=== PATIENT | male | born 1980 | race Caucasian/White ===

== ENCOUNTER 2017-06-13 10:55 | Emergency (ER) | payer SELFPAY ==
[~2017-06-13] VITALS: Ht 175.3 cm; Wt 74.8 kg
[2017-06-13 11:01] VITALS: BP 134/69
--- NOTE | 2017-06-13 11:22 | PHYS DOC ---
Past Medical History Past Medical History: Anxiety, Sciatica, Other Additional Past Medical Histor: scoliosis,back pain Past Surgical History: Other Additional Past Surgical Histo: left hand, left toe Alcohol Use: None Drug Use: None Adult General Chief Complaint Chief Complaint: LOWER BACK PAIN OR INJURY HPI HPI Patient is a 36 year old male with history of sciatica and anxiety moderate bilateral low back pain that began 5 days ago after lifting a refrigerator. Patient denies any trauma. He states the pain is radiating into the right hip. Patient states he was seen by the PCP who prescribed naproxen and Flexeril. He states it's not helping. Patient denies any loss of bowel/bladder function. Review of Systems Review of Systems Constitutional: Denies fever or chills [] GI: Denies abdominal pain, nausea, vomiting, bloody stools or diarrhea [] : Denies dysuria or hematuria [] Musculoskeletal: Low back pain radiating into the right hip Integument: Denies rash or skin lesions [] Neurologic: Denies headache, focal weakness or sensory changes [] Endocrine: Denies polyuria or polydipsia [] Current Medications Current Medications Current Medications Medications (Trade) Dose Ordered Sig/Carlos Start Time Stop Time Status Last Admin Dose Admin Dexamethasone Sodium Phosphate (Decadron) 10 mg 1X ONCE 06/13/17 11:30 06/13/17 11:31 Ketorolac Tromethamine (Toradol Im) 60 mg 1X ONCE 06/13/17 11:30 06/13/17 11:31 Allergies Allergies Allergies Coded Allergies Type Severity Reaction Last Updated Verified No Known Drug Allergies 01/15/14 No Physical Exam Physical Exam Constitutional: Well developed, well nourished, no acute distress, non-toxic appearance. [] HENT: Normocephalic, atraumatic, bilateral external ears normal, oropharynx moist, no oral exudates, nose normal. [] Abdomen: Bowel sounds normal, soft, no tenderness, no masses, no pulsatile masses. [] Skin: Warm, dry, no erythema, no rash. [] Back:Diffuse paraspinal muscle tenderness bilaterally worse on the right SI joint. No midline lumbar spine tenderness, no CVA tenderness. [] Extremities: No tenderness, no cyanosis, no clubbing, ROM intact, no edema. [] Neurologic: Alert and oriented X 3, normal motor function, normal sensory function, no focal deficits noted. [] Psychologic: Affect normal, judgement normal, mood normal. [] Current Patient Data Vital Signs Vital Signs Date Time Temp Pulse Resp B/P (MAP) Pulse Ox O2 Delivery O2 Flow Rate FiO2 06/13/17 11:01 97.9 106 22 95 Room Air 97.9 EKG EKG [] Radiology/Procedures Radiology/Procedures [] Course & Med Decision Making Course & Med Decision Making Pertinent Labs and Imaging studies reviewed. (See chart for details) Patient is in the ED with bilateral low back pain radiating into the right hip that began 5 days ago after lifting a refrigerator. It sounds like a muscle strain. He was seen by the PCP and was given naproxen and Flexeril which is not helping. He was given Toradol and Decadron in the ED. I discharged him with Medrol Dosepak Ultram and Robaxin. Recommended he follows up with the PCP in the next 3 days if symptoms are not improving. He requested a note for work which was provided. Dragon Disclaimer Dragon Disclaimer This electronic medical record was generated, in whole or in part, using a voice recognition dictation system. Departure Departure Impression: Primary Impression: Lumbosacral strain Disposition: HOME, SELF-CARE Condition: STABLE Referrals: NON,STAFF (PCP) Follow-up with your doctor as soon as you can Patient Instructions: Lumbosacral Strain Additional Instructions: You were seen for lumbar sacral muscle strain. Do not do any strenuous activities including lifting anything a gallon of milk for the next 7 days. Use the provided medications as ordered. Follow-up with your doctor as soon as you can. Come back to the ED symptoms worsen. Scripts Methylprednisolone (MEDROL) 4 Mg Tab.ds.pk 1 PKG PO UD, #1 PKG Prov: [employer] 06/13/17 Methocarbamol (ROBAXIN) 500 Mg Tablet 1 TAB PO TID, #30 TAB Prov: MUTUNGA,ISABELLE [employer] 06/13/17 Tramadol Hcl (ULTRAM) 50 Mg Tablet 1 TAB PO Q6HRS, #30 TAB Prov: M[employer] 06/13/17 Problem Qualifiers Primary Impression: Lumbosacral strain Encounter type: initial encounter Qualified Codes: S39.012A - Strain of muscle, fascia and tendon of lower back, initial encounter MUTSATHYAISABELLE [employer] Jun 13, 2017 11:22
[2017-06-13] MEDS ORDERED: KETOROLAC TROMETHAMINE 60 MG/2 ML INJ. IM ONE (11:30)
[2017-06-13] MEDS ORDERED: DEXAMETHASONE SOD PHOS 20 MG/5 ML VIAL. IM ONE (11:30)
[2017-06-13] MEDS ORDERED: TRAM-48 PO (11:31)
[2017-06-13] MEDS ORDERED: METH-37 PO (11:31)
[2017-06-13] MEDS ORDERED: METH4TAB2 PO (11:31)
== END 2017-06-13 11:35 | disposition home or self-care (01) ==
LOC: ER 10:55
DX: S39.012A Strain of muscle, fascia and tendon of lower back, initial encounter (principal); M41.9 Scoliosis, unspecified; F41.9 Anxiety disorder, unspecified; X58.XXXA Exposure to other specified factors, initial encounter; Y93.89 Activity, other specified; Y92.89 Other specified places as the place of occurrence of the external cause; Y99.8 Other external cause status
CPT/HCPCS: 96372; 99284; J1100; J1885

== ENCOUNTER 2017-06-27 21:43 | Emergency (ER) | payer SELFPAY ==
[~2017-06-27] VITALS: Ht 175.3 cm; Wt 74.8 kg
[~2017-06-27 21:43] MED LIST: METH-37 PO; METH4TAB2 PO; TRAM-48 PO
--- NOTE | 2017-06-27 22:01 | PHYS DOC ---
Past Medical History Past Medical History: Anxiety, Sciatica, Other Additional Past Medical Histor: scoliosis,back pain Past Surgical History: Other Additional Past Surgical Histo: left hand, left toe Smoking: Greater than 1 pack/day Alcohol Use: None Drug Use: None Social History Adult General Chief Complaint Chief Complaint: LOWER BACK PAIN OR INJURY HPI HPI Patient is a 36 year old male presents to the emergency department with complaints of low back pain that radiates to the right leg. Patient states that he has a long-standing history of low back pain with his most recent visit to the emergency department being August 13, 2017. At that visit he was lifting and developed low back pain, was x-rayed and treated with Medrol Dosepak, tramadol and a muscle relaxant. This evening patient went bowling and threw one ball and had onset of his chronic low back pain. He's had no loss of function of lower extremity's. No loss of bowel or bladder control. He is here seeking pain relief. Review of Systems Review of Systems Constitutional: Denies fever or chills [] Eyes: Denies change in visual acuity, redness, or eye pain [] HENT: Denies nasal congestion or sore throat [] Respiratory: Denies cough or shortness of breath [] Cardiovascular: No additional information not addressed in HPI [] GI: Denies abdominal pain, nausea, vomiting, bloody stools or diarrhea [] : Denies dysuria or hematuria [] Musculoskeletal: Low back pain Integument: Denies rash or skin lesions [] Neurologic: Denies headache, focal weakness or sensory changes [] Endocrine: Denies polyuria or polydipsia [] Current Medications Current Medications Current Medications Medications (Trade) Dose Ordered Sig/[facility] Start Time Stop Time Status Last Admin Dose Admin Diazepam (Valium) 5 mg 1X ONCE 06/27/17 23:30 06/27/17 23:31 DC 06/27/17 23:23 5 MG Fentanyl Citrate (Fentanyl 2ml Vial) 50 mcg 1X ONCE 06/27/17 23:15 06/27/17 23:16 DC 06/27/17 23:10 50 MCG Hydromorphone HCl (Dilaudid) 1 mg 1X ONCE 06/28/17 00:00 06/28/17 00:01 DC 06/28/17 00:04 1 MG Ketorolac Tromethamine (Toradol Im) 60 mg 1X ONCE 06/27/17 22:15 06/27/17 22:16 DC 06/27/17 22:21 60 MG Ondansetron HCl (Zofran) 4 mg 1X ONCE 06/27/17 23:15 06/27/17 23:16 DC 06/27/17 23:09 4 MG Orphenadrine Citrate (Norflex) 60 mg 1X ONCE 06/27/17 22:15 06/27/17 22:16 DC 06/27/17 22:22 60 MG Sodium Chloride 1,000 ml @ 1,000 mls/hr 1X ONCE 06/27/17 23:30 06/28/17 00:29 06/27/17 23:07 1,000 MLS/HR Allergies Allergies Allergies Coded Allergies Type Severity Reaction Last Updated Verified No Known Drug Allergies 01/15/14 No Physical Exam Physical Exam Constitutional: Well developed, well nourished, no acute distress, non-toxic appearance. [] Neck: Normal range of motion, no midline or paracervical tenderness, supple, no stridor. [] Cardiovascular:Heart rate regular rhythm, no murmur [] Lungs & Thorax: Bilateral breath sounds clear to auscultation [] Abdomen: Bowel sounds normal, soft, no tenderness, no masses, no pulsatile masses. [] Skin: Warm, dry, no erythema, no rash. [] Back: Mild tenderness over the right sacroiliac crest into the right leg. Negative straight raise leg test. His muscle strength is 5 over 5, DTRs 2 over 4. No CVAT tenderness. Neurovascular intact distally. Extremities: No tenderness, no cyanosis, no clubbing, ROM intact, no edema. Neurologic: Alert and oriented X 3, normal motor function, normal sensory function, no focal deficits noted. [] Current Patient Data Vital Signs Vital Signs Date Time Temp Pulse Resp B/P (MAP) Pulse Ox O2 Delivery O2 Flow Rate FiO2 06/28/17 00:04 18 97 Room Air 06/27/17 23:25 87 124/62 (82) 06/27/17 21:55 98.0 98.0 EKG EKG [] Radiology/Procedures Radiology/Procedures Three-view lumbar spine reviewed, no acute bony changes. [] Course & Med Decision Making Course & Med Decision Making Pertinent Labs and Imaging studies reviewed. (See chart for details) 2245: Patient received Toradol 60 mg IM, Norflex 60 mg IM and 50 g of fentanyl IM. Patient had persistent lumbar pain, requesting x-ray, patient had the same films done on his visit July 10, 2017. An IV will be placed and he will be given additional 50 g fentanyl IV,Valium 5mg IV, 1LNS; lumbar spine films ordered. 2345: Lumbar spine films reviewed, no bony changes. Patient states that his discomfort is better but still rates it a level VII on a scale 1-10. Dilaudid 1 mg IV given 1215: Pain rated 4 on a scale 1-10 after dilaudid 1mg IM. Plan for discharge, pt to F/U with PCP for further evaluation and treatment of chronic LBP with sciatica Miguel Disclaimer Miguel Disclaimer This electronic medical record was generated, in whole or in part, using a voice recognition dictation system. Departure Departure Impression: Primary Impression: Sciatica Additional Impression: Acute exacerbation of chronic low back pain Disposition: HOME, SELF-CARE Condition: STABLE Referrals: SHANELL DEL ROSARIO APRN (PCP) Patient Instructions: Sciatica Additional Instructions: No bowling, no lifting over 7 pounds, no bending at the waist, no pushing or pulling objects over 7 pounds. Please take prescriptions as directed. Ice to the affected area for 3 days and then he may use moist heat. Return to the emergency Department for new symptoms or concerns or worsening of current condition. Scripts Tramadol Hcl (TRAMADOL HCL) 50 Mg Tablet 50 MG PO DAILY Y for PAIN, #20 TAB 0 Refills Prov: PIERRE DOVE APRN 06/27/17 Naproxen (NAPROSYN) 500 Mg Tablet 1 TAB PO BID Y for PAIN, #20 TAB 1 Refill Prov: PIERRE DOVE APRN 06/27/17 Orphenadrine Citrate (ORPHENADRINE CITRATE) 100 Mg Tablet.er 1 TAB PO BID Y for muscle spasm, #20 TAB 1 Refill Prov: PIERRE DOVE APRN 06/27/17 Problem Qualifiers Primary Impression: Sciatica Laterality: right Qualified Codes: M54.31 - Sciatica, right side PIERRE DOVE APRN Jun 27, 2017 22:01
[2017-06-27] MEDS ORDERED: ORPHENADRINE CITRATE 60 MG/2 ML VIAL. IM ONE (22:15)
[2017-06-27] MEDS ORDERED: KETOROLAC TROMETHAMINE 60 MG/2 ML INJ. IM ONE (22:15)
[2017-06-27] MEDS ORDERED: fentaNYL PF VIAL 100 MCG/2 ML VIAL IM ONE (22:30)
[2017-06-27] MEDS ORDERED: TRAM50TA PO (22:31)
[2017-06-27] MEDS ORDERED: NAPR500T PO (22:31)
[2017-06-27] MEDS ORDERED: ORPH100T PO (22:31)
[2017-06-27] MEDS ORDERED: ONDANSETRON PF 4 MG/2 ML VIAL. IV ONE (23:15)
[2017-06-27] MEDS ORDERED: fentaNYL PF VIAL 100 MCG/2 ML VIAL IV ONE (23:15)
[2017-06-27] MEDS ORDERED: IV NORMAL SALINE 1000ML BAG 1,000 ML IV ONE (23:30)
[2017-06-28] MEDS ORDERED: HYDROmorphone 2 MG/ML VIAL IV ONE
[2017-06-28 00:45] VITALS: BP 113/62
--- NOTE | 2017-06-28 07:54 | RAD ---
Lumbar spine radiographs 06/28/2017 at 2317 hours Indication: Lumbar pain Comparison: 07/01/2010 Technique: 4 views of the lumbar spine are provided. Findings: There are 5 non rib-bearing lumbar type vertebral bodies. Alignment of the lumbar spine is normal. Mild disc space narrowing at L5-S1 with increased mild facet arthropathy since 07/01/2010. No evidence for spondylolysis or spondylolisthesis. No acute fracture. No significant soft tissue abnormality identified. Impression: 1. No acute fracture or malalignment of the lumbar spine. 2. Similar disc space narrowing at L5-S1 with increased mild facet arthropathy.
== END 2017-06-28 00:52 | disposition home or self-care (01) ==
LOC: ER 21:43
DX: M54.41 Lumbago with sciatica, right side (principal); F41.9 Anxiety disorder, unspecified; G89.29 Other chronic pain; M41.9 Scoliosis, unspecified
CPT/HCPCS: 72110; 96361; 96372; 96374; 96375; 99284; J1170; J1885; J2360; J2405; J3010; J3360; J7030

== ENCOUNTER 2017-11-07 21:04 | Emergency (ER) | payer SELFPAY | END 2017-11-07 22:17 | disposition home or self-care (01) | LOC: ER 21:04 | DX: S46.911A Strain of unspecified muscle, fascia and tendon at shoulder and upper arm level, right arm, initial encounter (principal); M41.9 Scoliosis, unspecified; F41.9 Anxiety disorder, unspecified; X58.XXXA Exposure to other specified factors, initial encounter; Y93.54 Activity, bowling; Y92.89 Other specified places as the place of occurrence of the external cause; Y99.8 Other external cause status | CPT/HCPCS: 73030; 99284 ==